=== PATIENT | male | born 1950 | race Caucasian/White ===

== ENCOUNTER 2018-02-06 15:43 | Outpatient (CLI) | payer MEDICARE, OTHER ==
--- NOTE | 2018-02-06 17:21 | RAD ---
LEFT KNEE TWO VIEWS: History: Knee pain. FINDINGS: There are moderate arthritic changes of the knee. There is marked medial compartment narrowing. There is patellofemoral degenerative changes. There is minimal joint effusion. IMPRESSION: Marked arthritic changes of the knee mainly related to medial compartment narrowing. POS: [facility]
--- NOTE | 2018-02-06 17:23 | RAD ---
RIGHT KNEE TWO VIEWS: History: Knee pain. FINDINGS: There are severe arthritic changes of the knee. Severe medial compartment narrowing. There is also mo derate spur formation of the patellofemoral joint space and some mild lateral compartment degenerativ e change. No joint effusion or acute changes. IMPRESSION: Marked arthritic changes of the knee. POS: [facility]
== END 2018-02-06 15:44 | disposition home or self-care (01) ==
LOC: BICRAD 15:43
PROVIDERS: ATTEND Family Medicine
DX: M25.569 Pain in unspecified knee (principal); M17.0 Bilateral primary osteoarthritis of knee

== ENCOUNTER 2018-04-15 15:30 | Outpatient (CLI) | payer MEDICARE, OTHER ==
--- NOTE | 2018-04-16 09:34 | MRI ---
MRI LEFT KNEE WITHOUT CONTRAST: INDICATION: Left knee pain. COMPARISON: Left knee radiograph dated 02/06/2018. TECHNIQUE: Routine noncontrast MR images were obtained of the left knee. FINDINGS: There is marked diffuse chondral thinning involving the medial femoral tibial joint compartment. The re are moderate osteophytes affecting all major compartments of the left knee. There is moderate to severe chondrosis involving the medial patellar facet and median patellar ridge. There is a complex multidirectional degenerative-type tear involving the posterior body and posterior horn of the medial meniscus. Lateral meniscus is intact. ACL, PCL, MCL, and LCLC are intact. The extensor mechanism is intact. IMPRESSION: 1. Moderate osteoarthrosis of the left knee predominantly affecting the patellofemoral medial femora l tibial joint compartment. 2. Multidirectional, complex degenerative meniscal tear involving the posterior body and posterior h orn of the medial meniscus with partial medial extrusion. POS: [facility]
--- NOTE | 2018-04-16 09:38 | MRI ---
MRI OF THE RIGHT KNEE WITHOUT CONTRAST: Date: 04/15/18 INDICATION: Right knee pain. COMPARISON: Right knee radiograph dated 02/06/18. TECHNIQUE: Routine noncontrast MR images were obtained in the right knee. FINDINGS: There is severe diffuse chondral thinning involving the medial femorotibial joint compartment with mo derate prominent marginal osteophytosis and subchondral edema involving the medial femoral condyle an d medial tibial plateau. There is mild diffuse chondral thinning involving the lateral femorotibial c ompartment. There is moderate diffuse chondral thinning involving the patellofemoral compartment with moderate marginal osteophytosis. There is a complex degenerative type tear involving the body of the medial meniscus with partial medi al extrusion. There is a horizontal radial component involving the body. Lateral meniscus appears int act. The ACL, PCL, MCL, and LCLC are intact. The extensor mechanism is intact. IMPRESSION: 1. Moderate to severe osteoarthrosis of the right knee. 2. Complex degenerative type tear with associated radial component involving the medial meniscus wit h medial extrusion of the meniscus. 3. Reactive edema involving the medial femoral condyle and medial tibial plateau due to full thickne ss articular cartilage defects of the medial femorotibial joint compartment. POS: [facility]
== END 2018-04-15 15:31 | disposition home or self-care (01) ==
LOC: BICMRI 15:30
PROVIDERS: ATTEND Family Medicine
DX: M25.562 Pain in left knee (principal); M25.561 Pain in right knee; S83.241A Other tear of medial meniscus, current injury, right knee, initial encounter; S83.242A Other tear of medial meniscus, current injury, left knee, initial encounter; M17.0 Bilateral primary osteoarthritis of knee